=== PATIENT | female | born 1975 | race Caucasian/White ===

== ENCOUNTER → 2018-12-04 14:15 | Outpatient (CLI) | payer SELFPAY ==
--- NOTE | 2018-12-04 14:19 | US_ITS ---
US transvaginal HISTORY: Enlarged uterus, irregular menses ITS.REASON: DUB ORDERING PHYSICIAN: Helder Ferguson MD PATIENT AGE: 43 years Comparison: 01/03/2015 FINDINGS: The uterus is enlarged measuring 11 x 5 x 5 cm. Endometrium is thickened at 12 mm with slight focal increased echogenicity in the mid endometrial region possibly related to a polyp. Small cystic areas present within the myometrium inferiorly in posteriorly measuring 5 mm. Focal area of increased echogenicity is present along the anterior aspect of the uterus at 12 x 7 mm and may be due to small fibroids. The left ovary is 2.7 x 1.6 cm and has an unremarkable appearance. The right ovary is 2.3 x 1.6 cm also have an unremarkable appearance. No cul-de-sac fluid is evident. IMPRESSION: 1. Enlarged uterus with thickened endometrium with possible in the major polyp 2. Suspect a small fibroid in the anterior aspect of the uterus at 12 mm
--- NOTE | 2018-12-04 14:19 | MM_ITS ---
MM Dig screening mamm BI w/CAD CAD Screening COMPARISON: None, this is baseline INDICATION: There is no personal or family history of breast cancer TECHNIQUE: Standard CC and MLO images were obtained. R2 CAD reviewed. FINDINGS: The breasts are composed primarily of fat with scattered fiber glandular densities throughout each breast. There is a benign-appearing spherical calcification left breast 12:00 position likely a calcified oil cyst. There is no suspicious lesion and there are no suspicious microcalcifications. IMPRESSION: Fibrofatty parenchyma no suspicious lesion seen BI-RADS Category: 2 Benign Finding(s) RECOMMENDED FOLLOW-UP: 1YR - 1 YEAR FOLLOW-UP (A letter has been sent to the patient regarding results of the study.) None, this is baseline
== END ==
PROVIDERS: Visit Provider Obstetrics & Gynecology
DX: N93.8 Other specified abnormal uterine and vaginal bleeding (principal); N64.4 Mastodynia
CPT/HCPCS: 76830; 77067

== ENCOUNTER → 2019-01-09 14:31 | Outpatient (CLI) | payer SELFPAY ==
[2019-01-09 14:33] LABS: Microscopic, Urine URINE MICROSCOPIC (MICROSCOPIC)
[2019-01-09 14:51] LABS: Appearance,Urine CLEAR (Clear); Bilirubin,Urine Negative (Negative); Blood, Urine Negative (Negative); Color,Urine YELLOW (Yellow); Glucose,Urine (UA) Negative (Negative); Ketones,Urine Negative (Negative); Leukocyte Esterase,Urine Negative (Negative); Nitrate,Urine Negative (Negative); Protein,Urine Negative (Negative); Specific Gravity, Urine 1.015 (1.005-1.030); Urobilinogen,Urine 0.2 EU/dl (0.2)
[2019-01-09 14:55] LABS: Basophils # 0.1 K/mm3 (0-0.2); Basophils % 1.1 % (0.1-2.0); Eosinophils # 0.2 K/mm3 (0.0-0.4); Eosinophils % 3.1 % (0.1-12.0); Hematocrit 33.7 % (37.0-47.0); Hemoglobin 10.9 g/dL (12.2-16.2); Lymphocytes # 1.7 K/mm3 (0.7-4.5); Lymphocytes % 25.4 % (10-50); Mean Corpuscular HGB Conc 32.4 g/dL (31.8-35.4); Mean Corpuscular Hemoglobin 28.6 pg (27.0-31.2); Mean Platelet Volume 9.3 fl (7.4-10.4); Monocytes # 0.4 K/mm3 (0.1-1.0); Monocytes % 5.8 % (1.7-9.3); Neutrophils # 4.3 K/mm3 (1.8-7.8); Neutrophils % 64.7 % (37.0-80.0); Platelet Count 266 K/mm3 (142-424); Red Blood Count 3.83 M/mm3 (4.20-5.40); Red Cell Distribution Width 13.7 % (11.5-17.5); White Blood Count 6.7 K/mm3 (4.8-10.8)
[2019-01-09 15:24] LABS: Bacteria,Urine 1+ /lpf
[2019-01-09 15:27] LABS: Urine Pregnancy, HCG Qual. Negative (Negative)
[2019-01-09 15:43] LABS: Alanine Aminotransferase 33 U/L (12-78); Albumin Level 3.7 gm/dL (3.4-5.0); Albumin/Globulin Ratio 1.1 (1.1-1.8); Alkaline Phosphatase 44 U/L (46-116); Anion Gap 12.3 mEq/L (5-15); Aspartate Amino Transferase 23 U/L (15-37); Bilirubin,Total 0.3 mg/dL (0.2-1.0); Blood Urea Nitrogen 15 mg/dL (7-18); Calcium 8.8 mg/dL (8.5-10.1); Carbon Dioxide 26 mmol/L (21.0-32.0); Chloride 108 mmol/L (98-107); Creatinine,Serum 0.94 mg/dL (0.55-1.02); Estimated Glomerular Filt Rate 65 ml/min (>60); GFR (African American) 78 ML/MIN (>60); Globulin 3.3 gm/dl (1.3-3.2); Glucose 97 mg/dL (74-106); Potassium 4.3 mmoL/L (3.5-5.1); Sodium 142 mmol/L (136-145)
== END ==
PROVIDERS: Visit Provider Obstetrics & Gynecology
DX: N93.8 Other specified abnormal uterine and vaginal bleeding (principal); D25.9 Leiomyoma of uterus, unspecified
CPT/HCPCS: 36415; 80053; 81001; 81025; 85025

== ENCOUNTER 2019-01-16 06:01 | Observation (INO) ==
--- NOTE | 2019-01-16 07:02 | Progress Note ---
[facility] Anesthesia Checklist - Patient Identification Patient Identification: Arm Band, Verbal (Name & ) - Structural Data Admitted From: Home Planned Operative Procedure/s: h Consent for Planned Operative Procedure(s) Verified: Yes Verified Documents: History and Physical - NPO Status Verified Time NPO: 00:00 - Additional verifications Patient : No Anesthesia Reactions: No Hx Blood Transfusions: No Blood Transfusion Reaction: No Cephalosporin Allergy: No Previous Colonoscopy: No - Cardiovascular Assessment Heart Sounds: S1 & S2 Pulse Strength: Baseline Pulse Rhythm: Regular Peripheral Edema: No - Airway Assessment C-Spine Mobility Assessed: Yes TMJ Mobility Assessed: Yes Dentition: Edentulous - Neurological Assessment Level of Consciousness: Awake, Alert, Appropriate Hx Seizures: No Numbness or tingling in extremities: No - Anesthesia Plan Anesthesia Risk discussed: Yes Anesthesia Plan: Verified ASA Class: III [facility] History I have reviewed the patient's past medical history: Yes Medical History: Denies:: Cancer, Diabetes Mellitus Type 1, Diabetes Mellitus Type 2, Internal Pacemaker, MRSA, Seizures *Have you ever received a pneumonia vaccine?: No *Have you received a flu vaccine this season?: No Other Medical History: Denies: Blood Transfusion Reaction Other Surgeries: No: Pacemaker Amputation: No Fractures: No - *Social History Educational Level: Completed Grade School Smoking Status: Never smoker Alcohol Intake: never Alcohol Intake Frequency:: other Substance Use Type: denies use *Occupational Status:: unemployed Housing: house Household Members: family *Travel in the last 8 weeks: None - Psychiatric History Expresses thoughts of harming self/others: None Suicide Plan Description: No Plan Family Hx:: No significant family history
--- NOTE | 2019-01-16 08:21 | Operative Note ---
Date of procedure: 01/16/19 Pre-op Diagnosis:: Dysfunctional uterine bleeding and uteromegaly Post-op Diagnosis:: Dysfunctional uterine bleeding and uteromegaly Procedure performed:: Total vaginal hysterectomy and enterocele repair Surgeon:: Helder Ferguson MD Machine Fastener(s):: LYNDA Austin SOFTWARE CLERK:: Gavino Mariano Anesthesia: GETA Estimated blood loss (mL): 300 Operative findings:: Uteromegaly Operative note:: After the patient was prepped and draped in usual fashion and general anesthesia was administered, examination under anesthesia revealed an enlarged uterus, with no palpable adnexal masses. A weighted speculum was placed within the posterior fourchette of the vagina, and the anterior lip of the cervix was grasped with a double-tooth tenaculum, and retracted to the introitus. The cervix was circumcised with a knife, and the vaginal mucosa was sharply and bluntly dissected free. A posterior colpotomy incision was made with Roddy scissors, and the long lip of the weighted speculum was placed within the posterior peritoneum. The uterosacral ligaments on either side were Dorothea clamped, cut, and Dorothea suture with #1 Vicryl, as were the cardinal ligaments and uterine vessels. The anterior peritoneum was entered with Roddy scissors, and a long right angle retractor was placed within it. The uterus was flipped anteriorly, and the ovarian pedicles were crossclamped and cut, thus removing the boggy uterine specimen. These pedicles were Dorothea sutured, and then free tied with #1 Vicryl. The tubes and ovaries were inspected and found to be normal and remain in situ. The posterior vaginal cuff was run unlocked with #1 Vicryl, to include the uterosacral ligament pedicles for vaginal support, and a Bazan fashion, to reduce the enterocele. The anterior peritoneum was grasped with a long Allis clamp, and closed with a running pursestring suture of 0 Vicryl, and pulled tight. The vaginal cuff was closed with an anteroposterior running locked suture of #1 Vicryl. The urine was clear in the Shaw catheter. The sponge and needle counts correct. The estimated blood loss was 300 cc. The patient tolerated the procedure well, and was taken to PACU in excellent condition. She will be admitted postoperatively. Condition: stable Disposition: PACU Specimens:: Uterus Complications:: None
--- NOTE | 2019-01-16 08:28 | Progress Note ---
[facility] Anesthesia Record Part I Intake, IV Amount: 650 Estimated blood loss (mL): 0 Urine output (mL): 0 Blood Products used (#): none Blood Pressure: 121/73 SaO2: 97 Pulse Rate: 85 Respiratory Rate: 20 Temperature: 99.1 F Patient is:: Awake, Stable Stable to PACU at:: 08:25
--- NOTE | 2019-01-16 08:29 | Progress Note ---
[facility] Anesthesia Record Part II Discharge Time: 08:55 Destination: Obstetric Gynecology Dept PACU nurse assessment reviewed?: Yes Patient Condition:: Good Anesthesia Complications:: None Swallowing reflex intact?: Yes Cyanosis?: No
[2019-01-16 10:23] LABS: Hematocrit 32.8 % (37.0-47.0); Hemoglobin 10.4 g/dL (12.2-16.2)
--- NOTE | 2019-01-16 11:01 | Pharmacy Consult Notes ---
[facility] Pharmacy VTE Monitoring - Patient Demographics Admission date: 01/16/19 Report Date: 01/16/19 Time: 11:01 Allergies/Adverse Reactions: Patient Allergies No Known Allergies Allergy (Verified 01/15/19 13:05) Height: 1.57 m Weight: 113.398 kg - VTE Risk Labs: VTE Related Lab Results Hgb 10.4 g/dL (12.2-16.2) L 01/16/19 09:53 Hct 32.8 % (37.0-47.0) L 01/16/19 09:53 - Prophylaxis VTE Prophylaxis Ordered?: Yes Types of VTE Prophylaxis: IPCS Thigh High Location of Applied Device: Bilateral Lower Extremeties - VTE Diagnosis Confirmed Treatment or plan recommended: Continue Current Treatment
--- NOTE | 2019-01-16 12:49 | Progress Note ---
Internal Medicine - PN: Subj *Date: 01/16/19 *Time: 12:48 (This is day of surgery. The patient is afebrile. Her urine ou tput is good, and her abdomen is soft. Surgery has been explained to the patient. Impression: Stable.) Exam Vital signs and Labs for Last 24 Hours: Temp Pulse Resp BP Pulse Ox 97.4 F L 63 16 103/64 L 98 01/16/19 11:50 01/16/19 12:20 01/16/19 12:20 01/16/19 12:20 01/16/19 12:20 Laboratory Results - last 24 hr 01/16/19 07:20: Urine Color Yellow, Urine Appearance Clear, Urine pH 7.5, Ur Specific [place] 1.010, Urine Protein Negative, Urine Glucose (UA) Negative, Urine Ketones Negative, Urine Blood Negative, Urine Nitrate Negative, Urine Bilirubin Negative, Urine Urobilinogen 0.2, Ur Leukocyte Esterase Negative, Urine RBC None, Urine WBC Occasional, Ur Squamous Epith Cells 3-5, Urine Bacteria Trace 01/16/19 09:53: Hgb 10.4 L, Hct 32.8 L I & O for Last 24 hours: Intake & Output 01/14/19 01/15/19 01/16/19 01/17/19 11:59 11:59 11:59 11:59 Intake Total 650 / 650 Output Total 375 / 375 Balance 275 / 275 Weight 250 lb
--- NOTE | 2019-01-17 06:07 | Progress Note ---
Internal Medicine - PN: Subj *Date: 01/17/19 *Time: 06:06 Interval history: This is postop day #1. The patient is afebrile. Vital signs stable. Abdomen soft. Shaw catheter is out and she has voided well. Impression: Stable. Exam Vital signs and Labs for Last 24 Hours: Temp Pulse Resp BP Pulse Ox 98.2 F 78 14 121/80 95 01/17/19 04:40 01/17/19 04:40 01/17/19 04:40 01/17/19 04:40 01/17/19 04:40 Laboratory Results - last 24 hr 01/16/19 07:20: Urine Color Yellow, Urine Appearance Clear, Urine pH 7.5, Ur Specific [place] 1.010, Urine Protein Negative, Urine Glucose (UA) Negative, Urine Ketones Negative, Urine Blood Negative, Urine Nitrate Negative, Urine Bilirubin Negative, Urine Urobilinogen 0.2, Ur Leukocyte Esterase Negative, Urine RBC None, Urine WBC Occasional, Ur Squamous Epith Cells 3-5, Urine Bacteria Trace 01/16/19 09:53: Hgb 10.4 L, Hct 32.8 L I & O for Last 24 hours: Intake & Output 01/14/19 01/15/19 01/16/19 01/17/19 11:59 11:59 11:59 11:59 Intake Total 650 / 650 Output Total 375 / 375 2550 / 2550 Balance 275 / 275 -2550 / -2550 Weight 250 lb
--- NOTE | 2019-01-17 11:43 | Progress Note ---
Internal Medicine - PN: Subj *Date: 01/17/19 *Time: 11:43 Interval history: The patient is afebrile. She is eating and ambulating and voiding well. She will be discharged today. Exam Vital signs and Labs for Last 24 Hours: Temp Pulse Resp BP Pulse Ox 98.4 F 78 17 130/78 97 01/17/19 06:48 01/17/19 06:48 01/17/19 06:48 01/17/19 06:48 01/17/19 08:20 I & O for Last 24 hours: Intake & Output 01/14/19 01/15/19 01/16/19 01/17/19 11:59 11:59 11:59 11:59 Intake Total 650 / 650 1617 / 1617 Output Total 375 / 375 3100 / 3100 Balance 275 / 275 -1483 / -1483 Weight 250 lb
--- NOTE | 2019-01-17 11:46 | Discharge Summary ---
General - General Admission date:: 01/16/19 Discharge date: 01/17/19 (And she is to return to the office in 2 weeks for follow-up.) Objective Vital signs: Temp Pulse Resp BP Pulse Ox 98.4 F 78 17 130/78 97 01/17/19 06:48 01/17/19 06:48 01/17/19 06:48 01/17/19 06:48 01/17/19 08:20 Discharge Plan - Patient Discharge Instructions Additional Instructions: NOTHING IN VAGINA FOR 6 WEEKS SHOWERS UNTIL CLEARED BY DR. HUANG NO HEAVY LIFTING OR STRENUOUS ACTIVITY FOLLOW-UP WITH DR. HUANG ON 02/03/2019 AT 10:30 Patient Instructions: DI for Postoperative Pain, DI for Vaginal Hysterectomy - Follow up Plan Home Medications: Home Medications Medication Instructions Recorded Confirmed Type No Known Home Medications 11/26/18 01/15/19 History Prescriptions/Medication Reconciliation: No Action No Known Home Medications
== END 2019-01-17 12:00 | disposition home or self-care (01) ==
LOC: OR 06:01 → INTOOBSV 06:34 → OB 06:34
PROVIDERS: ADMIT Obstetrics & Gynecology; ATTEND Obstetrics & Gynecology
CPT/HCPCS: 36415; 81001; 85014; 85018; 96372; 96374; G0378; J2405; J2710

== ENCOUNTER → 2022-08-18 09:48 | Outpatient (CLI) | payer SELFPAY ==
--- NOTE | 2022-08-18 12:54 | MM_ITS ---
PROCEDURE INFORMATION: Exam: Bilateral Screening 3D Mammography Exam date and time: 08/18/2022 9:59 AM Age: 47 years old Clinical indication: Screening mammogram TECHNIQUE: Imaging protocol: Bilateral Screening tomosynthesis and 2D mammography including computer-aided detection (CAD) when performed. COMPARISON: DIG MAMM-SCREEN ROLANDO 12/04/2018 3:20 PM FINDINGS: MAMMOGRAPHY: Breast composition: There are scattered areas of fibroglandular density. Mass: None. Architectural distortion: No new or suspicious architectural distortion. Calcifications: No new or suspicious calcifications are present Asymmetric density: No new or suspicious asymmetric density is present Skin thickening: None. Axillary adenopathy: None. IMPRESSION: No mammographic evidence of malignancy. Recommend annual screening mammography unless otherwise clinically indicated. The the ASSESSMENT: BI-RADS category 1: Negative
== END ==
PROVIDERS: PCP Physician Assistant
DX: Z12.31 Encounter for screening mammogram for malignant neoplasm of breast (principal)
CPT/HCPCS: 77063; 77067

== ENCOUNTER → 2022-10-16 06:45 | Outpatient (CLI) | payer SELFPAY ==
--- NOTE | 2022-10-16 06:48 | CT_ITS ---
FINAL REPORT TECHNIQUE: Thin section axial images were obtained through the heart and coronary arteries per CT coronary calcium score protocol. This study was performed with techniques to keep radiation doses as low as reasonably achievable (ALARA). Individualized dose reduction techniques using automated exposure control or adjustment of mA and/or kV according to the patient's size were employed. CLINICAL HISTORY: cp FINDINGS: On the axial images, no calcification is identified. This gives a coronary artery calcium score of 0 based on the Agatston scale. This coronary calcium score places the patient within the 0 percentile based on age and gender. The heart is normal in size. There is no pleural or pericardial effusion. Limited evaluation of the lungs reveal no suspicious nodule. There is a small sliding-type hiatal hernia. IMPRESSION: Coronary artery calcium score of 0 places patient in the 0 percentile based on age and gender. Reviewed, Interpreted and Dictated by Tristin Sherwood MD Transcribed by Alejandra Granados Authenticated and . [facility]
== END ==
PROVIDERS: PCP Nurse Practitioner Family; Visit Provider Internal Medicine Cardiovascular Disease
DX: R06.09 Other forms of dyspnea (principal); R07.89 Other chest pain; I10 Essential (primary) hypertension; E11.9 Type 2 diabetes mellitus without complications; E66.9 Obesity, unspecified; R06.83 Snoring; R61 Generalized hyperhidrosis
CPT/HCPCS: 75571

== ENCOUNTER → 2022-12-07 18:46 | Outpatient (CLI) | payer SELFPAY ==
[2022-12-08 10:50] LABS: Basophils # 0.1 K/mm3 (0-0.2); Basophils % 0.9 % (0.1-2.0); Eosinophils # 0.3 K/mm3 (0.0-0.4); Hematocrit 40.3 % (37.0-47.0); Hemoglobin 13.3 g/dL (12.2-16.2); Lymphocytes # 1.8 K/mm3 (0.7-4.5); Lymphocytes % 21.2 % (10-50); Mean Corpuscular HGB Conc 32.9 g/dL (31.8-35.4); Mean Corpuscular Hemoglobin 32.3 pg (27.0-31.2); Mean Corpuscular Volume 98.1 fl (81-99); Mean Platelet Volume 11.1 fl (7.4-10.4); Monocytes # 0.4 K/mm3 (0.1-1.0); Monocytes % 4.4 % (1.7-9.3); Neutrophils # 5.8 K/mm3 (1.8-7.8); Neutrophils % 70.6 % (37.0-80.0); Platelet Count 308 K/mm3 (142-424); Red Blood Count 4.11 M/mm3 (4.20-5.40); Red Cell Distribution Width 13.2 % (11.5-17.5); White Blood Count 8.2 K/mm3 (4.8-10.8)
[2022-12-08 10:54] LABS: Alanine Aminotransferase 32 U/L (12-78); Albumin Level 4.4 g/dl (3.5-5.0); Albumin/Globulin Ratio 1.6 (1.1-1.8); Alkaline Phosphatase 54 U/L (38-126); Aspartate Amino Transferase 38 U/L (14-36); Bilirubin,Total 0.4 mg/dl (0.2-1.3); Blood Urea Nitrogen 20 mg/dl (7-17); Calcium 9.3 mg/dl (8.4-10.2); Carbon Dioxide 26 mmol/L (22.0-30.0); Chloride 100 mmol/L (98-107); Chol/HDL Ratio 4.1 (1-3.5); Cholesterol 179 mg/dl (140-200); Estimated Glomerular Filt Rate 67 ml/min (>60); GFR (African American) 81 ML/MIN (>60); Globulin 2.8 g/dL (1.3-3.2); Glucose 96 mg/dl (74-100); HDL Cholesterol 44 mg/dl (40-60); Sodium 140 mmol/L (136-145); Total Protein,Serum 7.2 g/dl (6.3-8.2); Triglycerides 161 mg/dl (30-150); VLDL Cholesterol 32 mg/dL (0-40)
[2022-12-08 11:22] LABS: Hemoglobin A1C 5.7 % (4.0-6.0)
== END ==
LOC: LAB.DROPOF 18:48
PROVIDERS: PCP Nurse Practitioner Family; Visit Provider Nurse Practitioner Family
DX: I10 Essential (primary) hypertension (principal); E66.9 Obesity, unspecified; Z68.41 Body mass index [BMI] 40.0-44.9, adult
CPT/HCPCS: 80053; 80061; 83036; 84443; 85025

== ENCOUNTER → 2022-12-11 14:16 | Outpatient (CLI) | payer SELFPAY ==
--- NOTE | 2022-12-11 14:53 | XR_ITS ---
FINAL REPORT TECHNIQUE: Chest PA & Lateral CLINICAL HISTORY: sob FINDINGS: 2 views of the chest were performed. The heart size is normal. The mediastinum is within normal limits. There is mild bronchial wall thickening consistent with bronchitis. There are no pleural effusions. There is no pneumothorax. The bony thorax appears intact. IMPRESSION: Bronchitis. Reviewed, Interpreted and Dictated by Vikas Loera III, MD Transcribed by Hima Larsen Authenticated and [facility]
== END ==
LOC: RT 14:17
PROVIDERS: PCP Nurse Practitioner Family; Visit Provider Physician Assistant
DX: R06.09 Other forms of dyspnea (principal); R07.89 Other chest pain; I10 Essential (primary) hypertension; E66.9 Obesity, unspecified; Z68.41 Body mass index [BMI] 40.0-44.9, adult
CPT/HCPCS: 71046; 93306

== ENCOUNTER → 2022-12-28 07:08 | Outpatient (CLI) | payer SELFPAY ==
--- NOTE | 2023-04-05 13:36 | PC.NURSE ---
Have been unable to talk with Amara. I have spoke with Willie Curiel and he was suppose to give her my message to call me about a HST.
== END ==
LOC: RT 07:11
PROVIDERS: PCP Nurse Practitioner Family; Visit Provider Nurse Practitioner Family
DX: R06.02 Shortness of breath (principal)
CPT/HCPCS: 94060; 94726; 94729

== ENCOUNTER 2023-08-15 12:25 | Outpatient (CLI) | payer SELFPAY ==
--- NOTE | 2023-08-15 12:25 | MM_ITS ---
PROCEDURE INFORMATION: Exam: MG Bilateral Screening 3D Mammography Exam date and time: 08/15/2023 12:15 PM Age: 48 years old Clinical indication: Screening examination . Family history of breast carcinoma. TECHNIQUE: Imaging protocol: Bilateral Screening tomosynthesis and 2D mammography including computer-aided detection (CAD) when performed. COMPARISON: 1. MG MM DIG SCREENING MAMM BI W/CAD 08/18/2022 9:59 AM 2. MG DIG MAMM-SCREEN ROLANDO 12/04/2018 3:20 PM FINDINGS: MAMMOGRAPHY: Breast composition: There are scattered areas of fibroglandular density. Mass: No suspicious masses. Architectural distortion: No suspicious distortion. Calcifications: No suspicious calcifications. Asymmetric density: None. Skin thickening: None. Axillary adenopathy: None. IMPRESSION: 1. No mammographic evidence of malignancy. Annual screening is recommended unless otherwise clinically indicated. 2. Given the reported risk factors for this patient, a breast cancer risk assessment may prove useful for further evaluation. ASSESSMENT: BI-RADS Category 1: Negative
== END 2023-08-15 23:59 ==
LOC: RAD 12:25
PROVIDERS: PCP Nurse Practitioner Family; Visit Provider Nurse Practitioner Family
DX: Z12.31 Encounter for screening mammogram for malignant neoplasm of breast (principal)
CPT/HCPCS: 77063; 77067